=== PATIENT | male | born 1975 | race Caucasian/White ===

== ENCOUNTER 2017-12-30 16:50 | Emergency (ER) | payer OTHER, MEDICAID, SELFPAY ==
[2017-12-30 16:50] VITALS: BP 162/86; PULSE 86; RESP 18; TEMP 36.6; O2SAT 100; BMI 28.2
--- NOTE | 2017-12-30 17:56 | ED.NEUROSD ---
HPI - Neuro Symptoms/Deficit <CHRISTIE Ellis - Last Filed: 12/30/17 22:12> General Chief Complaint: Neuro Symptoms/Deficit Stated Complaint: TIRED MIGHT HAVE LOW BLOOD SUGAR Time Seen by Provider: 12/30/17 17:58 History of Present Illness HPI Narrative: 40-year-old healthy male here for complaint of having feelings of being tired with weakness over the past 4-5 days. He states he has also had sensation of having sweaty palms. He denies any anxiety. He denies any depression. He denies any stressors as for his symptoms. He states that the symptoms come and go. He denies any relievers of the symptoms. He denies any shortness of breath. No chest pain no headache. No fevers no chills. Positive p.o. intake. No urinary symptoms. He denies any other concerns or complaints. On Anticoagulants: No Related Data Home Medications Medication Instructions Recorded Confirmed No Known Home Medications 12/30/17 12/30/17 Allergies Allergy/AdvReac Type Severity Reaction Status Date / Time erythromycin base Allergy Unknown Unverified 10/16/17 11:49 [ERYTHROMYCIN BASE] quetiapine [From SEROQUEL] Allergy Unknown Unverified 10/16/17 11:49 Review of Systems <CHRISTIE Ellis - Last Filed: 12/30/17 22:12> Constitutional Reports weakness Eyes Denies change in vision, Denies eye discharge, Denies irritation and Denies loss of vision ENT Ears, Nose, Mouth, and Throat: Denies change in voice, Denies neck pain and Denies sore throat Cardiovascular Denies chest pain, Denies irregular heart rhythm, Denies lightheadedness, Denies palpitations, Denies dyspnea, Denies dyspnea on exertion and Denies orthopnea Respiratory Denies cough, Denies dyspnea, Denies dyspnea on exertion and Denies wheezing Gastrointestinal Gastrointestinal: Denies abdominal pain, Denies change in bowel habits, Denies diarrhea, Denies nausea and Denies vomiting Genitourinary Denies hematuria, Denies flank pain, Denies urinary incontinence and Denies urinary urgency Musculoskeletal Denies neck pain Integumentary/Breasts Denies pruritus, Denies erythema, Denies rash and Denies wounds Neurologic Denies confusion, Denies loss of vision and Reports weakness Psychiatric Denies anxiety, Denies confusion, Denies depression, Denies homicidal ideation and Denies suicidal ideation Endocrine Denies palpitations Hematologic/Lymphatic Denies easy bruising Allergic/Immunologic Denies wheezing Exam <CHRISTIE Ellis - Last Filed: 12/30/17 22:12> Initial Vital Signs Initial Vital Signs: Vital Signs Temperature 98 F 12/30/17 16:50 Pulse Rate 86 12/30/17 16:50 Respiratory Rate 18 12/30/17 16:50 Blood Pressure 162/86 H 12/30/17 16:50 Pulse Oximetry 100 12/30/17 16:50 Const General: cooperative and well developed Nutritional Appearance: well nourished Orientation: alert, awake, oriented x3 and not confused HENID Mouth: oral mucosae normal and moist mucous membranes Eyes Conjunctivae: conjunctivae normal Sclera: sclerae normal Pupils: PERRL EOM: EOM intact bilaterally Resp Effort & Inspection: normal respiratory effort, able to speak in complete sentences, no respiratory distress and no use of accessory muscles Auscultation: clear to auscultation bilaterally, no rales, no rhonchi and no wheezes Cardio Rate: regular rate Rhythm: regular rhythm Heart Sounds: no click, no gallops, no murmurs and no rubs Skin General: no rashes or lesions noted, No jaundice and No petechiae Neuro General: alert, awake and oriented x3 Cognition: normal cognition Speech: speech normal Motor: muscle tone normal throughout Sensory Exam: no sensory deficits noted <Yunior Hernandez MD - Last Filed: 12/31/17 05:54> Initial Vital Signs Initial Vital Signs: Vital Signs Temperature 98 F 12/30/17 16:50 Pulse Rate 86 12/30/17 16:50 Respiratory Rate 18 12/30/17 16:50 Blood Pressure 162/86 H 12/30/17 16:50 Pulse Oximetry 100 12/30/17 16:50 Course <CHRISTIE Ellis - Last Filed: 12/30/17 22:12> Orders Ordered: ED Orders 12/30/17 19:00 XR chest 1V Stat EKG-12 Lead Stat 12/30/17 19:23 Complete Blood Count AUTO DIFF Stat Comprehensive Metabolic Panel Stat Troponin with CK Cardiac Panel Stat Vital Signs - 8 hr 12/30/17 16:50 12/30/17 20:28 Temperature 98 F Pulse Rate 86 58 L Respiratory Rate 18 17 Blood Pressure 162/86 H Blood Pressure [Left Arm] 155/92 H Pulse Oximetry 100 100 <Yunior Hernandez MD - Last Filed: 12/31/17 05:54> Orders Ordered: ED Orders 12/30/17 19:00 XR chest 1V Stat EKG-12 Lead Stat 12/30/17 19:23 Complete Blood Count AUTO DIFF Stat Comprehensive Metabolic Panel Stat Troponin with CK Cardiac Panel Stat Vital Signs - 8 hr 12/30/17 16:50 12/30/17 20:28 Temperature 98 F Pulse Rate 86 58 L Respiratory Rate 18 17 Blood Pressure 162/86 H Blood Pressure [Left Arm] 155/92 H Pulse Oximetry 100 100 MDM - Neuro Symptoms/Deficit <CHRISTIE Ellis - Last Filed: 12/30/17 22:12> Lab Data Result diagrams: 12/30/17 19:23 12/30/17 19:23 Lab Results 12/30/17 12/30/17 Range/Units 19:23 19:23 WBC 6.0 (4.5-11.0) X10^3/uL RBC 4.61 (4.5-5.9) X10^6/uL Hgb 14.4 (13.5-17.5) g/dL Hct 42.5 (41-53) % MCV 92.2 (80-100) fL MCH 31.3 (26-34) PG MCHC 34.0 (30-36) % RDW 13.2 (11.6-14.8) % Plt Count 225 (150-400) X10^3/uL Neut % (Auto) 65.4 (50-75) % Lymph % (Auto) 22.0 L (25-40) % Louisa % (Auto) 11.3 (3-14) % Eos % (Auto) 0.2 L (2-4) % Baso % (Auto) 1.1 (0-2) % Neut # (Auto) 3900 (3832-7530) /uL Sodium 143 (137-145) mmol/L Potassium 4.7 (3.4-5.1) mmol/L Chloride 101 (98-107) mmol/L Carbon Dioxide 28 (22-32) mmol/L BUN 13 (9-20) mg/dL Creatinine 0.70 (0.66-1.25) mg/dL Estimated GFR > 60.0 (>60) mL/min BUN/Creatinine Ratio 18.6 (6-22) Glucose 108 H (70-100) mg/dL Calcium 10.2 (8.4-10.2) mg/dL Total Bilirubin 0.6 (0.2-1.3) mg/dL AST 27 (17-59) IU/L ALT 32 (21-72) IU/L Alkaline Phosphatase 54 (38-126) U/L Total Creatine Kinase 91 (55-170) U/L Troponin I < 0.012 (0.01-0.034) ng/mL Total Protein 8.6 H (6.3-8.2) g/dL Albumin 5.1 H (3.5-5.0) g/dL Globulin 3.5 (1.7-4.1) g/dL Albumin/Globulin Ratio 1.5 (1.0-2.8) ECG Data Interpretation: EKG shows normal sinus rhythm with no ST elevation or depression. No ectopy. Ventricular rate of 65. Pr interval 187. QRS duration 102. QT of 415. MDM Narrative Medical decision making narrative: EKG shows normal sinus rhythm with no ST elevation or depression. No ectopy. Chest x-ray was obtained was negative for any acute findings. CBC and Chem panel were obtained were unremarkable. Cardiac enzymes were negative. Unknown etiology of his symptoms. Patient states he has had some stressful events over the past week and possibly may be causing some of his symptoms. He is encouraged to follow up with primary care provider later this week for re-evaluation. Return emergency room for any worsening symptoms. <Yunior Hernandez MD - Last Filed: 12/31/17 05:54> Lab Data Lab Results 12/30/17 12/30/17 Range/Units 19:23 19:23 WBC 6.0 (4.5-11.0) X10^3/uL RBC 4.61 (4.5-5.9) X10^6/uL Hgb 14.4 (13.5-17.5) g/dL Hct 42.5 (41-53) % MCV 92.2 (80-100) fL MCH 31.3 (26-34) PG MCHC 34.0 (30-36) % RDW 13.2 (11.6-14.8) % Plt Count 225 (150-400) X10^3/uL Neut % (Auto) 65.4 (50-75) % Lymph % (Auto) 22.0 L (25-40) % Louisa % (Auto) 11.3 (3-14) % Eos % (Auto) 0.2 L (2-4) % Baso % (Auto) 1.1 (0-2) % Neut # (Auto) 3900 (9650-7477) /uL Sodium 143 (137-145) mmol/L Potassium 4.7 (3.4-5.1) mmol/L Chloride 101 (98-107) mmol/L Carbon Dioxide 28 (22-32) mmol/L BUN 13 (9-20) mg/dL Creatinine 0.70 (0.66-1.25) mg/dL Estimated GFR > 60.0 (>60) mL/min BUN/Creatinine Ratio 18.6 (6-22) Glucose 108 H (70-100) mg/dL Calcium 10.2 (8.4-10.2) mg/dL Total Bilirubin 0.6 (0.2-1.3) mg/dL AST 27 (17-59) IU/L ALT 32 (21-72) IU/L Alkaline Phosphatase 54 (38-126) U/L Total Creatine Kinase 91 (55-170) U/L Troponin I < 0.012 (0.01-0.034) ng/mL Total Protein 8.6 H (6.3-8.2) g/dL Albumin 5.1 H (3.5-5.0) g/dL Globulin 3.5 (1.7-4.1) g/dL Albumin/Globulin Ratio 1.5 (1.0-2.8) Discharge Plan Departure Patient Disposition: Home, Self-Care Clinical Impression: Weakness Discharge Date/Time: 12/30/17 20:32 Interventions: ED Discharge Assessment Last Done: 12/30/17 20:31 Instructions: DI for Muscle Weakness Activity Restrictions/Additional Instructions: EKG chest x-ray and laboratory results today were unremarkable. No emergent cause of your symptoms are found today. Follow up with her primary care provider later this week for re-evaluation. For any worsening symptoms return to the emergency room. Prescriptions: No Action No Known Home Medications RF: 0 Referrals: Arnoldo Hernandez MD [Primary Care Provider] - <Yuniro Hernandez MD - Last Filed: 12/31/17 05:54> Cosign ED Attending Latishaature Attestation: I was immediately available in the department for consultation. Documentation has been reviewed. I agree with assessment and plan.
--- NOTE | 2017-12-30 19:00 | DI.RAD.S_ITS ---
PROCEDURE: XR CHEST 1V INDICATIONS: Feeling of weakness TECHNIQUE: One view of the chest was acquired. COMPARISON: None. FINDINGS: Surgical changes and devices: None. Lungs and pleura: No pleural effusions or pneumothorax. Lungs are clear. Mediastinum: Mediastinal contours appear normal. Heart size is normal. Bones and chest wall: No suspicious bony lesions. Overlying soft tissues appear unremarkable. IMPRESSION: No acute process. Dictated by: Juan José Reveles M.D. on 12/30/2017 at 19:35 Approved by: Juan José Reveles M.D. on 12/30/2017 at 19:35
[2017-12-30 19:28] LABS: Add Manual Diff / Slide Review NO; Basophils Percent Auto 1.1 % (0-2); Eosinophils Percent Auto 0.2 % (2-4); Hematocrit 42.5 % (41-53); Hemoglobin 14.4 g/dL (13.5-17.5); Mean Corpuscular Hemoglobin 31.3 PG (26-34); Mean Corpuscular Volume 92.2 fL (80-100); Monocytes Percent Auto 11.3 % (3-14); Neutrophils Absolute Auto 3900 /uL (3000-5900); Neutrophils Percent Auto 65.4 % (50-75); Platelet Count 225 X10^3/uL (150-400); Red Blood Cell Count 4.61 X10^6/uL (4.5-5.9); Red Cell Distribution Width 13.2 % (11.6-14.8)
[2017-12-30 19:49] LABS: Alanine Aminotransferase 32 IU/L (21-72); Albumin 5.1 g/dL (3.5-5.0); Albumin Globulin Ratio 1.5 (1.0-2.8); Alkaline Phosphatase 54 U/L (38-126); Aspartate Aminotransferase 27 IU/L (17-59); BUN Creatinine Ratio 18.6 (6-22); Bilirubin Total 0.6 mg/dL (0.2-1.3); Blood Urea Nitrogen 13 mg/dL (9-20); Calcium 10.2 mg/dL (8.4-10.2); Carbon Dioxide 28 mmol/L (22-32); Chloride 101 mmol/L (98-107); Creatine Kinase 91 U/L (55-170); Estimated Glomerular Filt Rate > 60.0 mL/min (>60); Globulin 3.5 g/dL (1.7-4.1); Glucose 108 mg/dL (70-100); HEMOLYSIS < 15 (0-50); Potassium 4.7 mmol/L (3.4-5.1); Sodium 143 mmol/L (137-145); Total Protein 8.6 g/dL (6.3-8.2)
[2017-12-30 20:11] LABS: Troponin I < 0.012 ng/mL (0.01-0.034)
[2017-12-30 20:28] VITALS: BP 155/92; PULSE 58; RESP 17; O2SAT 100
== END 2017-12-30 20:32 | disposition home or self-care (01) ==
PROVIDERS: Emergency Provider Nurse Practitioner Family; Family Provider Family Medicine; PCP Family Medicine
DX: R53.1 Weakness (principal)
CPT/HCPCS: 36415; 71045; 80053; 81003; 82550; 82553; 82962; 84484; 85025; 93005; 99282; 99285; 99291

== ENCOUNTER → 2018-09-26 09:15 | Outpatient (CLI) | payer OTHER, MEDICAID, SELFPAY ==
--- NOTE | 2018-09-26 | DI.MRI.S_ITS ---
PROCEDURE: MR KNEE RT WO CON INDICATIONS: INTERNAL DERANGEMENT OF RIGHT KNEE TECHNIQUE: Noncontrast sagittal PD fast spin echo and T2 fast spin echo with fat saturation, sagittal 3-D FLASH with fat saturation; coronal T1 spin echo and PD fast spin echo with fat saturation, and axial PD fast spin echo with fat saturation through the knee. COMPARISON: [facility], CR, XR KNEE ARTHRITIC SERIES RT, 05/27/2018, 8:14. FINDINGS: Image quality: Excellent. Menisci: Lateral meniscus appears intact. Medial meniscal tear involving the posterior horn, posterior root, body with partial extrusion of the body. There are multiple adjacent parameniscal cysts next to the body and posterior horn. The largest measuring 2.0 x 1.1 cm image 33 series 8 Cruciate ligaments: The anterior and posterior cruciate ligaments appear intact. Medial structures: The medial collateral ligament appears intact. The posterior oblique ligament, semimembranosus tendon insertions, oblique popliteal ligament, and meniscocapsular junction appear intact. Visualized portions of the pes anserinus tendons appear normal. No abnormal bursal fluid. Lateral structures: The lateral collateral ligament, long and short heads of the biceps femoris tendon appear intact. The popliteus tendon appears normal; the popliteofibular ligament appears intact. The posterosuperior and anteroinferior popliteomeniscal fascicles appear intact. The arcuate and fabellofibular ligaments appear intact, on either side of the lateral inferior geniculate artery. Iliotibial band appears normal. Anterior structures: The quadriceps tendon appears intact. Proximal and distal patellar tendinopathy, mild. Fluid in the deep infrapatellar recess is noted raising possibility of bursitis. Patellar alignment is normal. No femoral trochlear dysplasia or ventral trochlear prominence. No edema in the infrapatellar fat pad. Bones and cartilage: No focal marrow contusion or discrete low signal fracture line. Within the medial compartment, no focal articular cartilage defect. Within the lateral compartment, no focal articular cartilage defect. Within the patellofemoral compartment, partial-thickness loss and surface fissuring of the cartilage overlying the median patellar ridge and medial patellar facet. Femoral trochlear cartilage appears grossly intact. Joint space: Small partially ruptured Mcgovern's cyst. No intra-articular loose bodies identified. No pathologic joint effusion. IMPRESSION: Large medial meniscal tear involving the posterior root, posterior horn and body with partial extrusion. Numerous parameniscal cysts as detailed above adjacent to the body and posterior horn. Mild proximal and distal patellar tendinopathy. Small ruptured Mcgovern's cyst. Patellofemoral chondromalacia. Deep infrapatellar bursal fluid raising possibility of bursitis. Dictated by: Damon Maxwell M.D. on 09/26/2018 at 11:48 Approved by: Damon Maxwell M.D. on 09/26/2018 at 11:56
== END ==
PROVIDERS: PCP Student in an Organized Health Care Education/Training Program; Visit Provider Physician Assistant Surgical
DX: S83.241A Other tear of medial meniscus, current injury, right knee, initial encounter (principal); M67.863 Other specified disorders of tendon, right knee; M66.0 Rupture of popliteal cyst; M22.41 Chondromalacia patellae, right knee
CPT/HCPCS: 73721

== ENCOUNTER → 2018-11-05 16:42 | Outpatient (CLI) | payer OTHER, MEDICAID, SELFPAY ==
[2018-11-05 17:08] LABS: Add Manual Diff / Slide Review NO; Basophils Absolute Auto 100 /uL (0-100); Eosinophils Absolute Auto 100 /uL (0-450); Eosinophils Percent Auto 1.5 % (2-4); Hematocrit 43.5 % (41-53); Hemoglobin 14.5 g/dL (13.5-17.5); Lymphocytes Absolute Auto 2000 /uL (1100-4500); Lymphocytes Percent Auto 33.4 % (25-40); Mean Corpuscular HGB Conc 33.3 % (30-36); Mean Corpuscular Hemoglobin 30.6 PG (26-34); Monocytes Absolute Auto 700 /uL (0-900); Neutrophils Absolute Auto 3200 /uL (1500-7000); Neutrophils Percent Auto 52.1 % (50-75); Platelet Count 210 X10^3/uL (150-400); Red Blood Cell Count 4.72 X10^6/uL (4.5-5.9); Red Cell Distribution Width 13.4 % (11.6-14.8); White Blood Cell Count 6.1 X10^3/uL (4.5-11.0)
[2018-11-05 18:21] LABS: BUN Creatinine Ratio 22.5 (6-22); Blood Urea Nitrogen 18 mg/dL (9-20); Carbon Dioxide 28 mmol/L (22-32); Chloride 101 mmol/L (98-107); Estimated Glomerular Filt Rate > 60.0 mL/min (>60); Glucose 95 mg/dL (70-100); HEMOLYSIS < 15 (0-50); Potassium 3.9 mmol/L (3.4-5.1); Sodium 141 mmol/L (137-145)
== END ==
PROVIDERS: PCP Student in an Organized Health Care Education/Training Program; Visit Provider Student in an Organized Health Care Education/Training Program
DX: Z01.810 Encounter for preprocedural cardiovascular examination (principal)
CPT/HCPCS: 36415; 80048; 85025